=== PATIENT | female | born 2005 | race Caucasian/White ===

== ENCOUNTER 2024-09-19 21:08 | Emergency (ER) | payer BC, SELFPAY ==
[2024-09-19 21:12] VITALS: BP 131/90
[2024-09-19 21:35] VITALS: BP 121/83; BMI 21.4
[2024-09-19 22:00] VITALS: BP 106/77
--- NOTE | 2024-09-19 22:01 | ED.GENMED ---
History of Present Illness
General
Chief Complaint: Breathing Problem
Source: patient
Exam Limitations: none
Time Seen by Provider: 09/19/24 21:23
History of Present Illness
History of Present Illness:
This is a 19 year old female that comes in with c/o SOB. State that this has been going on for almost a year. States that it was worse today so she went to and they did and ECG and chest and sent her to the ER. States that her chest gets tight
when this happens. Denies any fever, chills, abd pain, nausea, vomiting, diarrhea, headache, dizziness, urinary burning.
Past History
Past History
ED Past Medical History: Seizures and Other (RBBB)
ED Past Surgical History: Orthopedic (Foot surgery)
Social History
Tobacco: Non-smoker
Alcohol: Occasional
Personal: Single
Living: with family
Employment: Employed
Review of Systems
Review of Systems
All Other Systems: ROS reviewed and negative except as documented in HPI and ROS
Constitutional: Reports no symptoms; Denies fever or chills
EENT: Reports no symptoms
Respiratory: Reports trouble breathing; Denies cough
Cardiac: Reports other (Chest gets tight with SOB)
ABD/GI: Reports no symptoms; Denies abdominal pain, nausea, vomiting or diarrhea
: Reports no symptoms; Denies dysuria, frequency or urgency
Musculoskeletal: Reports no symptoms
Skin: Reports no symptoms
Neurological: Reports no symptoms; Denies dizzy or headache
Psychiatric: Reports no symptoms
Phy Exam
General Physical Exam
General Presentation: well appearing and no apparent distress
General age: appears stated age
General Skin: warm and dry
General Habitus: normal
General Mental: alert
General Hydration: appears well hydrated
ENT Exam
ENT Exam: TM's normal, pharynx normal and neck supple
Eye Exam
Eye Exam: EOMI
Cardiovascular Exam
Cardiovascular Exam: regular rate/rhythm, no edema, no murmur and normal peripheral pulses
Pulmonary Exam
Pulmonary Exam: lungs clear, no respiratory distress, no rales, chest non tender, no crackles, no rhonchi, no wheezing and no cough
Gastrointestinal Exam
Gastrointestinal Exam: normal bowel sounds, non tender, soft, no organomegaly, no pulsatile mass and non distended
Musculoskeletal Exam
Musculoskeletal Exam: full ROM and no edema
Skin Exam
Skin Exam: normal color, warm/dry, no rash and no petechia
Psychiatric Exam
Psychiatric Exam: normal mood/affect
Course
Orders/Labs/Results
Orders:
Orders
09/19/24 21:34
EKG [Electrocardiogram (*1)] Urgent
Reason for Study: Shortness of Breath
EKG- Treatment ONCE
09/19/24 22:01
Test Result ONCE
09/19/24 22:14
Complete Blood Count/With Diff Urgent
09/19/24 22:39
Comprehensive Metabolic Panel Urgent
D-Dimer Urgent
HCG, Serum Qualitative Screen Urgent
Troponin I Urgent
09/20/24 00:00
CT Chest Pe Study Urgent
Reason For Exam: SOB, Slightly elevated D-dimer
Abnormal Lab Results
09/19/24 09/19/24
22:14 22:39
Lymphocytes % 19.7 L %
(20.5-51.1)
D-Dimer 0.52 H ug/mlFEU
(0.00-0.50)
Glucose 101 H mg/dl
(70-99)
09/19/24 22:14
09/19/24 22:39
D-dimer very slightly elevated at 0.52, troponin <0.012, Glucose nonfasting. HCG negative
Vital Signs
Initial and Last Documented VS:
Initial Vital Signs
Temp Pulse Resp BP Pulse Ox
98 F 82 16 131/90 98
09/19/24 21:12 09/19/24 21:12 09/19/24 21:12 09/19/24 21:12 09/19/24 21:12
Last Documented Vital Signs
Temp Pulse Resp BP Pulse Ox
98 F 76 13 113/77 99
09/19/24 21:12 09/20/24 00:15 09/20/24 00:15 09/20/24 00:00 09/20/24 00:15
MDM/Problems Addressed
Differential Diagnosis Includes:
SOB, PE, Anxiety
MDM/Problems Addressed:
This is a 19 year old female that comes in with c/o SOB. States that this has been going on for a almost a year. states that today it was worse when she was at work. Patient went to and she was sent to the ER.
Will check lab, ECG
Explained to patient that if all the big things are ruled out she will need to see her television maintenance worker for further evaluation. Patient's oxygen level is 100% on room air and HR was 86
Back into see patient. Explained that her CT was negative for PE and her lungs are clear. Blood work is normal. Would have patient follow up with a television maintenance worker for further evaluation and her family doctor. Return with any concerns.
Chronic conditions affecting care: Psychiatric illness (Anxiety)
Acute Exacerbation and/or Progression of Chronic Illness: Psychiatric illness (Anxiety)
*Radiology
Radiology exam reviewed: radiology read reviewed (CT- night hawk- No pulmonary embolus. Technically adequate study. No thoracic aneurysm or dissection. Lungs are clear. Mediastinal and cardiac structure are unremarkable. Visualized portions) and
other (CT cont- of the upper abdomen are unremarkable. )
*Pulse Oximetry
Patient hypoxic: no
*EKG
Interpreted by ED Provider?: Yes
Heart Rate: 77
Rate: normal
Rhythm: sinus
[place]: normal axis
Interval: normal interval
QRS Pattern: right bundle branch block
Ischemia: no ischemia
*[employer] Analyst Interpretation
Rate: normal
Heart Rate: 86
Rhythm: sinus
*Critical Care Note
Total Time (30-74mins, 75-104mins- exclusive of procedures): Not Applicable
ED Attending Note
-
Portions of this chart may have been created with voice recognition software.� Occasional wrong word or��sound alike� substitutions may have occurred due to the inherent limitations of voice recognition software.
Discharge Plan
Departure
Patient Disposition: Home (Routine Discharge)
Date of Disposition: 09/20/24
Time of Disposition: 00:58
Patient with high blood pressure during this ER visit?: No
Condition: Good
Covid-19: Not Applicable
Discharge Problem:
Shortness of breath
Instructions: Shortness of Breath (Dyspnea) (DC)
Prescriptions:
No Action
lamotrigine 100 mg Tablet
100 mg PO DAILY
lamotrigine 200 mg Tablet
200 mg PO HS
Referrals:
Fransisco Cordova MD [Active] - Call in 1-3 days for appt
NONE,* [Family Provider] -
Activity Restrictions/Additional Instructions:
As discussed, your blood work is normal. Your CT of the chest is negative for any Pulmonary embolism and your lungs are clear. You have no wheezing and your Oxygen saturation is 100% on room air. Please follow up with the family doctor and the
television maintenance worker for further evaluation. This may also be anxiety driven. IF YOU HAVE ANY OTHER CONCERNS PLEASE RETURN TO THE EMERGENCY ROOM.
Interventions
Interventions:
*Risk Screen - Suicide Last Done: 09/19/24 21:12
*General Assessment Last Done: 09/19/24 21:36
*Neglect/Abuse Screening Last Done: 09/19/24 21:12
ED- Fall Risk Assessment Last Done: 09/19/24 21:36
*ED COVID-19 Vaccine History Last Done: 09/19/24 21:36
ED- Cardiac Assessment Last Done: 09/19/24 21:36
ED- Pulmonary Assessment Last Done: 09/19/24 21:36
Discharge Date and Time
Print Language: MALAGASY
[2024-09-19 22:25] LABS: % Basophils 0.3 % (0-2); % Eosinophils 0.5 % (0-6); % Immature Granulocytes 0.2 % (0-0.5); % Lymphocytes 19.7 % (20.5-51.1); % Monocytes 5.4 % (1.7-9.3); % Neutrophils 73.9 % (42.2-75.2); Absolute Lymphocytes 1.2 10^3/uL (1.2-3.4); Absolute Monocytes 0.3 10^3/uL (0.1-0.6); Absolute Neutrophils 4.4 10^3/uL (1.4-6.5); Hematocrit 38.7 % (37.0-47.0); Hemoglobin 12.8 g/dL (12.0-16.0); Mean Corp Hgb Conc. 33.1 g/dL (33.0-37.0); Mean Corpuscular Hgb 29.2 pg (27.0-31.0); Mean Corpuscular Volume 88.4 fL (81.0-99.0); Mean Platelet Volume 10.2 fL (7.4-10.4); Nucleated Red Blood Cells % 0 %; Platelet Count 218 10^3/uL (130-400); Red Blood Cell Count 4.38 10^6/uL (4.20-5.40); White Blood Cell Count 5.9 10^3/uL (4.8-10.8)
[2024-09-19 23:00] VITALS: BP 117/81
[2024-09-19 23:04] LABS: D-Dimer 0.52 ug/mlFEU (0.00-0.50)
[2024-09-19 23:05] LABS: HCG, Serum Qualitative Screen Negative
[2024-09-19 23:08] LABS: ALT (SGPT) 13 U/L (0-35); AST (SGOT) 22 U/L (14-36); Albumin 4.9 g/dl (3.5-5.0); Alkaline Phosphatase 66 U/L (38-126); Blood Urea Nitrogen 7 mg/dl (7-17); Calcium 9.6 mg/dl (8.4-10.2); Carbon Dioxide 24 mmol/L (22-30); Chloride 103 mmol/L (98-107); Estimated Creatinine Clearance 124 ml/min; Glucose 101 mg/dl (70-99); Potassium 4.2 mmol/L (3.5-5.1); Sodium 138 mmol/L (135-145); Total Bilirubin 0.3 mg/dl (0.2-1.3); Total Protein 7.3 g/dl (6.3-8.2); eGFR > 60.00
[2024-09-19 23:12] LABS: Troponin I < 0.012 ng/ml
[2024-09-20] VITALS: BP 113/77
[2024-09-20 01:00] VITALS: BP 119/71
== END 2024-09-20 01:17 | disposition home or self-care (01) ==
LOC: EMR 21:08
PROVIDERS: Clinical Nurse Specialist Family Health; EMERGENCY PHYSICIAN Emergency Medicine
DX: R06.02 Shortness of breath (principal); R07.89 Other chest pain; R79.1 Abnormal coagulation profile; F41.9 Anxiety disorder, unspecified
CPT/HCPCS: 99284; 71275; 80053; 84484; 84703; 85025; 85379; 93005; Q9967